=== PATIENT | female | born 1935 | race Caucasian/White ===

== ENCOUNTER 2019-09-25 10:58 | Outpatient (CLI) | payer MEDICARE, BC, SELFPAY ==
--- NOTE | 2019-09-25 11:06 | US_ITS ---
WS: [id number] LEFT DIGITAL MAMMOGRAPHY WITH CAD CLINICAL INFORMATION: ABNORMAL MAMMOGRAM COMPARISON: July 08, 2019 TECHNIQUE: 3 views of the left breast were obtained. FINDINGS: The left breast is composed of heterogeneous fibroglandular density tissue, which can limit the detec tion of small underlying mass lesions. Previously described 7 mm asymmetric density appears slightly smaller today and partially compresses out on the spot compression views. Ultrasound is pending. ULTRASOUND BREAST LEFT TECHNIQUE: Ultrasound left breast focused area of concern. CLINICAL INFORMATION: ABNORMAL MAMMOGRAM COMPARISON: None. FINDINGS: Ultrasound left breast the 6 clock position 2 cm from the nipple. Incidental slightly prominent duct at the 6:00 position. No visualized intraductal mass or lesion. No other suspicious findings. No lesi ons to target for biopsy. US/US breast LT limited* [id number] IMPRESSION: BI-RADS: 2-Benign FOLLOW UP: 1 Year Follow-up Recommend return to annual screening mammography.
== END 2019-09-25 10:59 | disposition home or self-care (01) ==
LOC: RADSHAW 10:58
PROVIDERS: Family Provider Family Medicine; PCP Family Medicine; Visit Provider Family Medicine
DX: N64.89 Other specified disorders of breast (principal); R92.8 Other abnormal and inconclusive findings on diagnostic imaging of breast
CPT/HCPCS: 76642; 77065

== ENCOUNTER 2021-03-08 13:02 | Outpatient (RCR) | payer MEDICARE, BC, SELFPAY | END 2021-04-05 23:59 | disposition home or self-care (01) | LOC: SPT 13:02 | PROVIDERS: PCP Family Medicine; Referring Provider Family Medicine; Visit Provider Family Medicine | DX: M54.5 Low back pain (principal) | CPT/HCPCS: 97110; 97161; 97530 ==

== ENCOUNTER 2021-04-06 06:00 | Outpatient (RCR) | payer MEDICARE, BC, SELFPAY | END 2021-05-05 23:59 | disposition home or self-care (01) | LOC: SPT 06:00 | PROVIDERS: PCP Family Medicine; Referring Provider Family Medicine; Visit Provider Family Medicine | DX: M54.5 Low back pain (principal) | CPT/HCPCS: 97110; 97530 ==

== ENCOUNTER 2021-05-06 06:00 | Outpatient (RCR) | payer MEDICARE, BC, SELFPAY | END 2021-06-05 23:59 | disposition home or self-care (01) | LOC: SPT 06:00 | PROVIDERS: PCP Family Medicine; Referring Provider Family Medicine; Visit Provider Family Medicine | DX: M54.50 Low back pain, unspecified (principal) | CPT/HCPCS: 97110; 97530 ==